=== PATIENT | female | born 1940 | race Caucasian/White ===

== ENCOUNTER → 2017-04-07 | Outpatient (CLI) | payer MEDICARE, OTHER ==
[~2017-04-07] MED LIST: ALBU8HFA IH; AMIO200T44 PO; AMLO-512 PO; ASPI-556 PO; ATOR40TA28 PO; BENA20 PO; BIOT1CAP3 PO; CLON.1 PO; ESOM20CA31 PO; MULT-1203 PO; OMEG100019 PO; PHOSLOC PO; REGADENOSON 0.4 MG/5 ML PF SYRINGE IVP ONE; SENN-106 PO; SESTAMIBI TC99M/UD ISOTOPE 1 EA INJ INJ ONE; VENL-67 PO
[2017-04-07 09:15] VITALS: BP 143/73
[2017-04-07 10:43] VITALS: BP 146/62
== END | disposition home or self-care (01) ==
LOC: CARDMN 08:09
PROVIDERS: ATTEND Internal Medicine Cardiovascular Disease
DX: I25.9 Chronic ischemic heart disease, unspecified (principal); I07.1 Rheumatic tricuspid insufficiency; I35.8 Other nonrheumatic aortic valve disorders; I50.1 Left ventricular failure, unspecified
CPT/HCPCS: 78452; 93017; 93306; A9500; J2785

== ENCOUNTER 2019-06-09 09:09 | Emergency (ER) | payer MEDICARE, OTHER ==
[~2019-06-09] VITALS: Ht 167.6 cm; Wt 91.8 kg
[~2019-06-09 09:09] MED LIST changes: -AMLO-512 PO; +AMLO10TA7 PO; +CLON-570 PO; -CLON.1 PO; +OMEG-135 PO; -OMEG100019 PO; -REGADENOSON 0.4 MG/5 ML PF SYRINGE IVP ONE; -SESTAMIBI TC99M/UD ISOTOPE 1 EA INJ INJ ONE
[2019-06-09] MEDS ORDERED: ATOR10TA84 PO (09:22)
[2019-06-09] MEDS ORDERED: HYDR-4069 PO (09:22)
[2019-06-09] MEDS ORDERED: KETOROLAC TROMETHAMINE 30 MG/ML VIAL IVP ONE (09:30)
[2019-06-09] MEDS ORDERED: MORPHINE SULFATE 4 MG/ML SYRINGE IVP ONE (09:30)
[2019-06-09] MEDS ORDERED: LIDOCAINE 5% TRANSDERMAL PATCH TD ONE (09:30)
[2019-06-09] MEDS ORDERED: CYCLOBENZAPRINE HCL 10 MG TABLET PO ONE (09:30)
[2019-06-09 10:19] VITALS: BP 141/81
== END 2019-06-09 10:27 | disposition home or self-care (01) ==
LOC: EMS 09:11
DX: M54.5 Low back pain (principal); G89.29 Other chronic pain; I48.91 Unspecified atrial fibrillation; I11.0 Hypertensive heart disease with heart failure; I50.9 Heart failure, unspecified; J44.9 Chronic obstructive pulmonary disease, unspecified; K21.9 Gastro-esophageal reflux disease without esophagitis; E78.00 Pure hypercholesterolemia, unspecified; F17.210 Nicotine dependence, cigarettes, uncomplicated; Z88.6 Allergy status to analgesic agent; Z79.82 Long term (current) use of aspirin
CPT/HCPCS: 96374; 96375; 99283; J1885; J2270

== ENCOUNTER → 2019-10-18 | Outpatient (CLI) | payer MEDICARE, OTHER ==
[~2019-10-18] VITALS: Ht 167.6 cm; Wt 90.0 kg
[~2019-10-18] MED LIST changes: +A20IH1 NEB; +ACET-66 PO; +ACET1030H NEB; -AMIO200T44 PO; +AMIO200T67 PO; +ATOR10TA84 PO; -ATOR40TA28 PO; -BENA20 PO; +BENA20TA11 PO; +BENZ200C53 PO; -BIOT1CAP3 PO; -CLON-570 PO; +CLON0.1T83 PO; +CLOP75TA3 PO; +DOCU-275 PO; -ESOM20CA31 PO; +GUAIF10 PO; +HYDR-4069 PO; +IPRNEB IH; +LEVO-72 PO; +MOM30 PO; -MULT-1203 PO; +MULT-248 PO; +NAPR-1193 PO; -OMEG-135 PO; +ONDA-104 PO; +PANT40TA25 PO; +PERCT PO; -PHOSLOC PO; +PRED5 PO
[2019-10-18 09:14] VITALS: BP 128/58
== END | disposition home or self-care (01) ==
LOC: SRCNTR 09:07
PROVIDERS: ATTEND Internal Medicine Critical Care Medicine
DX: J44.1 Chronic obstructive pulmonary disease with (acute) exacerbation (principal); F17.200 Nicotine dependence, unspecified, uncomplicated; F32.9 Major depressive disorder, single episode, unspecified; I10 Essential (primary) hypertension; E66.01 Morbid (severe) obesity due to excess calories; E78.5 Hyperlipidemia, unspecified; Z79.82 Long term (current) use of aspirin; Z79.899 Other long term (current) drug therapy; Z79.891 Long term (current) use of opiate analgesic; Z98.890 Other specified postprocedural states
CPT/HCPCS: G0463

== ENCOUNTER → 2019-10-30 | Outpatient (CLI) | payer MEDICARE, OTHER ==
[~2019-10-30] MED LIST changes: -A20IH1 NEB; -ACET-66 PO; -ACET1030H NEB; +AMIO200T44 PO; -AMIO200T67 PO; -BENZ200C53 PO; +CLON0.1T2 PO; -CLON0.1T83 PO; -CLOP75TA3 PO; -DOCU-275 PO; -GUAIF10 PO; -IPRNEB IH; -LEVO-72 PO; -MOM30 PO; -MULT-248 PO; -NAPR-1193 PO; -ONDA-104 PO; -PANT40TA25 PO; -PERCT PO; -PRED5 PO
== END | disposition home or self-care (01) ==
LOC: RADPV 10:59
PROVIDERS: ATTEND Internal Medicine Geriatric Medicine
DX: M51.36 Other intervertebral disc degeneration, lumbar region (principal); M47.816 Spondylosis without myelopathy or radiculopathy, lumbar region; M47.814 Spondylosis without myelopathy or radiculopathy, thoracic region; M85.88 Other specified disorders of bone density and structure, other site; M41.84 Other forms of scoliosis, thoracic region; I70.0 Atherosclerosis of aorta
CPT/HCPCS: 72070; 72100

== ENCOUNTER → 2019-12-07 | Outpatient (CLI) | payer MEDICARE, OTHER ==
[~2019-12-07] VITALS: Ht 162.6 cm; Wt 89.0 kg
[~2019-12-07] MED LIST changes: +A20IH1 NEB; +ACET-66 PO; +ACET1030H NEB; -AMIO200T44 PO; +AMIO200T67 PO; +BENZ200C53 PO; -CLON0.1T2 PO; +CLON0.1T83 PO; +CLOP75TA3 PO; +DOCU-275 PO; +GUAIF10 PO; +IPRNEB IH; +LEVO-72 PO; +MOM30 PO; +MULT-248 PO; +NAPR-1193 PO; +ONDA-104 PO; +PANT40TA25 PO; +PERCT PO; +PRED5 PO
[2019-12-07 09:41] VITALS: BP 140/63
== END | disposition home or self-care (01) ==
LOC: SRCNTR 09:40
PROVIDERS: ATTEND Internal Medicine Critical Care Medicine
DX: M85.80 Other specified disorders of bone density and structure, unspecified site (principal); M47.814 Spondylosis without myelopathy or radiculopathy, thoracic region; J44.9 Chronic obstructive pulmonary disease, unspecified; E66.01 Morbid (severe) obesity due to excess calories; E78.5 Hyperlipidemia, unspecified; I10 Essential (primary) hypertension
CPT/HCPCS: G0463

== ENCOUNTER 2019-12-09 18:32 | Inpatient (IN) | payer MEDICARE, OTHER ==
[~2019-12-09] VITALS: Ht 167.6 cm; Wt 96.2 kg
[~2019-12-09 18:32] MED LIST changes: -A20IH1 NEB; -ACET-66 PO; -ACET1030H NEB; -BENZ200C53 PO; -DOCU-275 PO; -GUAIF10 PO; -IPRNEB IH; -LEVO-72 PO; -MOM30 PO; -MULT-248 PO; -NAPR-1193 PO; -ONDA-104 PO; -PANT40TA25 PO; -PERCT PO; -PRED5 PO
[2019-12-09] MEDS ORDERED: AZITHROMYCIN 250 MG TABLET PO ONE (19:00)
[2019-12-09] MEDS ORDERED: IPRATROPIUM BROMIDE 0.5 MG/2.5 ML NEB SOLUTION NEB ONE (19:00)
[2019-12-09] MEDS ORDERED: CefTRIAXone 1 GM/DEXTROSE 50 ML IV ONE (19:00)
[2019-12-09] MEDS ORDERED: SODIUM CHLORIDE 0.9% 500 ML IV ONE (19:00)
[2019-12-09] MEDS ORDERED: PredniSONE 20 MG TABLET PO ONE (19:00)
[2019-12-09] MEDS ORDERED: 0.9% SODIUM CHLORIDE 10 ML SYRINGE IVP PRN (19:00)
[2019-12-09] MEDS ORDERED: ALBUTEROL SULFATE 2.5 MG/0.5 ML NEB SOLUTION NEB ONE (19:00)
[2019-12-09 19:56] LABS: BASOPHILS % (AUTO) 0.2 % (0.0-2.0); EOSINOPHILS % (AUTO) 0 % (1.0-6.0); LYMPHOCYTES % (AUTO) 14.3 % (22.0-44.0); MEAN CORPUSCULAR HGB CONC 33.4 G/dL (31.0-37.0); MEAN CORPUSCULAR VOLUME 90 fL (80-100); MONOCYTES # (AUTO) 1.1 K/uL (0.1-1.0); NEUTROPHILS # (AUTO) 10.8 K/uL (1.8-7.7); NEUTROPHILS % (AUTO) 77.5 % (40.0-70.0); PLATELET COUNT (AUTO) 208 K/uL (150-450); RED BLOOD CELL COUNT(AUTO) 4.01 MIL/uL (4.00-5.20); RED CELL DISTRIBUTION WIDTH 14.1 % (11.5-14.5)
[2019-12-09 20:04] LABS: PROTHROMBIN TIME 10.5 SEC (9.4-11.6)
[2019-12-09 20:05] LABS: CALCIUM, TOTAL 9.5 mg/dL (8.8-10.5); CREATININE 1.02 mg/dL (0.60-1.30); POTASSIUM 3.4 mmol/L (3.5-5.1)
[2019-12-09 20:10] LABS: ALBUMIN 3.1 g/dL (3.4-5.0); BILIRUBIN,TOTAL 0.4 mg/dL (0.1-1.0); TOTAL PROTEIN, SERUM 7.4 g/dL (6.4-8.2)
[2019-12-09 20:23] LABS: LACTIC ACID 1.2 mmol/L (0.4-2.0)
[2019-12-09] MEDS ORDERED: ACETAMINOPHEN 325 MG TABLET PO PRN (20:45)
[2019-12-09] MEDS ORDERED: HYDROCODONE/ACETAMINOPHEN 5-325 MG TABLET PO ONE (21:30)
[2019-12-09 23:12] VITALS: BP 158/60
[2019-12-09 23:19] LABS: INFLUENZA TYPE A NEGATIVE FOR TYPE A (NEGATIVE); INFLUENZA TYPE B NEGATIVE FOR TYPE B (NEGATIVE)
[2019-12-10] MEDS ORDERED: ACETAMINOPHEN 325 MG TABLET PO PRN
[2019-12-10] MEDS ORDERED: MAGNESIUM HYDROXIDE SUSPENSION 30 ML UDCUP PO PRN
[2019-12-10] MEDS ORDERED: ONDANSETRON HCL 4 MG/2 ML VIAL IVP PRN
[2019-12-10] MEDS ORDERED: 0.9% SODIUM CHLORIDE 10 ML SYRINGE IVP PRN
[2019-12-10] MEDS ORDERED: POTASSIUM CHL 10 MEQ/WATER 50 ML IV PRN (00:15)
[2019-12-10] MEDS ORDERED: SODIUM CHLORIDE 0.9% 1,000 ML IV SCH (00:15)
[2019-12-10] MEDS ORDERED: POTASSIUM CHLORIDE 20 MEQ ER TABLET PO PRN (00:15)
[2019-12-10] MEDS ORDERED: ALBUTEROL SULFATE 2.5 MG/0.5 ML NEB SOLUTION NEB PRN (00:15)
[2019-12-10] MEDS: MethylPREDNISolone SOD SUCC 125 MG/2 ML VIAL IVP SCH ×3 (00:58→15:28)
[2019-12-10 01:24] LABS: APPEARANCE,URINE CLEAR (CLEAR); BILIRUBIN,URINE NEGATIVE (NEGATIVE); GLUCOSE, URINE (UA) NEGATIVE (NEGATIVE); KETONES,URINE NEGATIVE (NEGATIVE); LEUKOCYTE ESTERASE ,URINE NEGATIVE (NEGATIVE); NITRATE,URINE POSITIVE (NEGATIVE); OCCULT BLOOD,URINE SMALL (NEGATIVE); PROTEIN,URINE NEGATIVE (NEGATIVE); UROBILINOGEN,URINE 0.2 mg/dL (<=1.0)
[2019-12-10 01:31] LABS: BACTERIA,URINE Rare /HPF (None Seen); RBC,URINE 0-2 /HPF (0-2); SQUAMOUS EPITHELIAL CELL,UR Moderate /LPF (None Seen)
[2019-12-10] MEDS: IPRATROPIUM BROMIDE 0.5 MG/2.5 ML NEB SOLUTION NEB SCH ×4 (02:53→20:25)
[2019-12-10] MEDS: ALBUTEROL SULFATE 2.5 MG/0.5 ML NEB SOLUTION NEB SCH ×4 (02:53→20:25)
[2019-12-10 03:15] LABS: GLUCOMETER DEV NAME(LOC) 5N.2; GLUCOSE,POINT OF CARE 179 MG/DL (70-110)
[2019-12-10 04:20] VITALS: BP 131/59
[2019-12-10 07:13] VITALS: BP 124/70
[2019-12-10 07:37] LABS: BASOPHILS % (AUTO) 0.2 % (0.0-2.0); EOSINOPHILS % (AUTO) 0 % (1.0-6.0); HEMATOCRIT 38.5 % (36-46); HEMOGLOBIN 12.7 g/dL (12.0-16.0); LYMPHOCYTES # (AUTO) 0.7 K/uL (1.0-4.8); LYMPHOCYTES % (AUTO) 5.4 % (22.0-44.0); MEAN CORPUSCULAR HEMOGLOBIN 29.9 pg (26.0-34.0); MEAN CORPUSCULAR HGB CONC 33.1 G/dL (31.0-37.0); MEAN CORPUSCULAR VOLUME 90 fL (80-100); MONOCYTES # (AUTO) 0.1 K/uL (0.1-1.0); MONOCYTES % (AUTO) 1.2 % (2.0-9.0); NEUTROPHILS # (AUTO) 11.4 K/uL (1.8-7.7); PLATELET COUNT (AUTO) 202 K/uL (150-450); RED BLOOD CELL COUNT(AUTO) 4.26 MIL/uL (4.00-5.20); RED CELL DISTRIBUTION WIDTH 14.5 % (11.5-14.5)
[2019-12-10 07:46] LABS: NEUTROPHILS % (AUTO) 93.2 % (40.0-70.0)
[2019-12-10 07:51] LABS: ANION GAP 11 mmol/L (8-16); CALCIUM, TOTAL 9.4 mg/dL (8.8-10.5); CARBON DIOXIDE 25 mmol/L (22-29); CHLORIDE 105 mmol/L (98-107); CREATININE 0.77 mg/dL (0.60-1.30); GLOMERULAR FILTR. RATE CALC > 60 mL/min (>60); GLUCOSE,RANDOM 188 mg/dL (70-110); POTASSIUM 4.2 mmol/L (3.5-5.1); SODIUM SERUM 141 mmol/L (136-145); UREA NITROGEN, BLOOD 16 mg/dL (7-18)
[2019-12-10] MEDS: CLOPIDOGREL BISULFATE 75 MG TABLET PO SCH (08:46)
[2019-12-10] MEDS: DOCUSATE SODIUM 100 MG CAPSULE PO SCH ×2 (08:47→20:58)
[2019-12-10] MEDS: ASPIRIN 81 MG EC TABLET PO SCH ×2 (08:47→20:57)
[2019-12-10] MEDS: VENLAFAXINE HCL 75 MG ER CAPSULE PO SCH (08:47)
[2019-12-10] MEDS: AMIODARONE HCL 200 MG TABLET PO SCH (08:47)
[2019-12-10] MEDS: FAMOTIDINE 10 MG/ML 2 ML VIAL IVP SCH (08:47)
[2019-12-10] MEDS: BENAZEPRIL HCL 20 MG TABLET PO SCH (08:48)
[2019-12-10] MEDS: AmLODIPine BESYLATE 10 MG TABLET PO SCH (08:48)
[2019-12-10 11:13] VITALS: BP 116/41
[2019-12-10 15:36] VITALS: BP 124/66
[2019-12-10] MEDS ORDERED: FUROSEMIDE 40 MG/4 ML VIAL IVP ONE (15:45)
[2019-12-10] MEDS: GuaiFENesin/D-METHORPHAN [SUGAR-FREE] 200-20MG/10 ML SYRUP UDCUP PO PRN (18:29)
[2019-12-10 19:55] VITALS: BP 153/63
[2019-12-10] MEDS: CefTRIAXone 1 GM/DEXTROSE 50 ML IV SCH (20:25)
[2019-12-10] MEDS ORDERED: SODIUM CHLORIDE 0.9% 250 ML IV ONE (20:26)
[2019-12-10] MEDS: ATORVASTATIN CALCIUM 10 MG TABLET PO SCH (20:57)
[2019-12-10] MEDS: AZITHROMYCIN 500 MG/NS 250 ML IV SCH (20:59)
[2019-12-10] MEDS: OxyCODONE HCL/ACETAMINOPHEN 5-325 MG TABLET PO PRN (21:02)
[2019-12-11 00:12] VITALS: BP 136/63
[2019-12-11] MEDS: MethylPREDNISolone SOD SUCC 125 MG/2 ML VIAL IVP SCH ×4 (00:32→23:29)
[2019-12-11] MEDS: IPRATROPIUM BROMIDE 0.5 MG/2.5 ML NEB SOLUTION NEB SCH ×4 (02:20→19:48)
[2019-12-11] MEDS: ALBUTEROL SULFATE 2.5 MG/0.5 ML NEB SOLUTION NEB SCH ×4 (02:20→19:48)
[2019-12-11 04:00] VITALS: BP 143/83
[2019-12-11 05:55] LABS: BASOPHILS % (AUTO) 0.1 % (0.0-2.0); EOSINOPHILS % (AUTO) 0 % (1.0-6.0); HEMATOCRIT 35.1 % (36-46); HEMOGLOBIN 11.4 g/dL (12.0-16.0); LYMPHOCYTES # (AUTO) 0.8 K/uL (1.0-4.8); LYMPHOCYTES % (AUTO) 5.4 % (22.0-44.0); MEAN CORPUSCULAR HEMOGLOBIN 29.7 pg (26.0-34.0); MEAN CORPUSCULAR HGB CONC 32.6 G/dL (31.0-37.0); MEAN CORPUSCULAR VOLUME 91 fL (80-100); MONOCYTES # (AUTO) 0.4 K/uL (0.1-1.0); MONOCYTES % (AUTO) 2.5 % (2.0-9.0); NEUTROPHILS # (AUTO) 12.9 K/uL (1.8-7.7); PLATELET COUNT (AUTO) 197 K/uL (150-450); RED BLOOD CELL COUNT(AUTO) 3.85 MIL/uL (4.00-5.20); RED CELL DISTRIBUTION WIDTH 14.2 % (11.5-14.5)
[2019-12-11 06:03] LABS: CALCIUM, TOTAL 9.6 mg/dL (8.8-10.5); CREATININE 0.96 mg/dL (0.60-1.30); POTASSIUM 4.5 mmol/L (3.5-5.1)
[2019-12-11 07:37] VITALS: BP 146/92
[2019-12-11] MEDS: DOCUSATE SODIUM 100 MG CAPSULE PO SCH ×2 (08:21→20:40)
[2019-12-11] MEDS: FAMOTIDINE 10 MG/ML 2 ML VIAL IVP SCH (08:21)
[2019-12-11] MEDS: VENLAFAXINE HCL 75 MG ER CAPSULE PO SCH (08:21)
[2019-12-11] MEDS: BENAZEPRIL HCL 20 MG TABLET PO SCH (08:22)
[2019-12-11] MEDS: CLOPIDOGREL BISULFATE 75 MG TABLET PO SCH (08:22)
[2019-12-11] MEDS: AMIODARONE HCL 200 MG TABLET PO SCH (08:22)
[2019-12-11] MEDS: AmLODIPine BESYLATE 10 MG TABLET PO SCH (08:22)
[2019-12-11] MEDS: ASPIRIN 81 MG EC TABLET PO SCH ×2 (08:22→20:39)
[2019-12-11 11:09] VITALS: BP 138/78
[2019-12-11] MEDS: GuaiFENesin/D-METHORPHAN [SUGAR-FREE] 200-20MG/10 ML SYRUP UDCUP PO PRN ×2 (14:57→20:39)
[2019-12-11 15:07] VITALS: BP 137/54
[2019-12-11] MEDS ORDERED: HYDROCODONE/ACETAMINOPHEN 10-325 MG TABLET PO PRN (15:45)
[2019-12-11] MEDS ORDERED: SENNA/DOCUSATE SODIUM 8.6-50 MG TABLET PO PRN (15:45)
[2019-12-11 20:19] VITALS: BP 135/57
[2019-12-11] MEDS: CefTRIAXone 1 GM/DEXTROSE 50 ML IV SCH (20:38)
[2019-12-11] MEDS: OxyCODONE HCL/ACETAMINOPHEN 5-325 MG TABLET PO PRN (20:39)
[2019-12-11] MEDS: ATORVASTATIN CALCIUM 10 MG TABLET PO SCH (20:39)
[2019-12-11] MEDS: AZITHROMYCIN 500 MG/NS 250 ML IV SCH (21:18)
[2019-12-12 00:29] VITALS: BP 147/73
[2019-12-12] MEDS: IPRATROPIUM BROMIDE 0.5 MG/2.5 ML NEB SOLUTION NEB SCH ×4 (02:00→20:00)
[2019-12-12] MEDS: ALBUTEROL SULFATE 2.5 MG/0.5 ML NEB SOLUTION NEB SCH ×4 (02:00→20:00)
[2019-12-12 05:30] VITALS: BP 109/62
[2019-12-12 06:54] LABS: BASOPHILS % (AUTO) 0.1 % (0.0-2.0); EOSINOPHILS % (AUTO) 0 % (1.0-6.0); HEMATOCRIT 34.8 % (36-46); HEMOGLOBIN 11.4 g/dL (12.0-16.0); LYMPHOCYTES # (AUTO) 1.1 K/uL (1.0-4.8); LYMPHOCYTES % (AUTO) 7.9 % (22.0-44.0); MEAN CORPUSCULAR HEMOGLOBIN 29.9 pg (26.0-34.0); MEAN CORPUSCULAR HGB CONC 32.8 G/dL (31.0-37.0); MEAN CORPUSCULAR VOLUME 91 fL (80-100); MONOCYTES # (AUTO) 0.4 K/uL (0.1-1.0); MONOCYTES % (AUTO) 2.5 % (2.0-9.0); NEUTROPHILS # (AUTO) 12.9 K/uL (1.8-7.7); PLATELET COUNT (AUTO) 222 K/uL (150-450); RED BLOOD CELL COUNT(AUTO) 3.82 MIL/uL (4.00-5.20); RED CELL DISTRIBUTION WIDTH 14.4 % (11.5-14.5)
[2019-12-12 07:00] LABS: HEMOGLOBIN A1C 6.3 % (3.8-5.6)
[2019-12-12 07:07] LABS: NEUTROPHILS % (AUTO) 89.5 % (40.0-70.0)
[2019-12-12 07:16] LABS: ANION GAP 10 mmol/L (8-16); CALCIUM, TOTAL 9.4 mg/dL (8.8-10.5); CARBON DIOXIDE 25 mmol/L (22-29); CHLORIDE 103 mmol/L (98-107); CHOL/HDL RATIO 3.9 (3.9-5.7); CHOLESTEROL 167 mg/dL (131-200); CREATININE 0.83 mg/dL (0.60-1.30); FREE T4 (FREE THYROXINE) 1.47 ng/dL (0.76-1.46); GLUCOSE,RANDOM 170 mg/dL (70-110); HDL CHOLESTEROL 43 mg/dL (40-60); LDL CHOL (CALC.) 104 mg/dL (0-130); POTASSIUM 4.4 mmol/L (3.5-5.1); SODIUM SERUM 138 mmol/L (136-145); THYROID STIMULATING HORMONE 0.19 uIU/mL (0.36-3.74); TRIGLYCERIDES 100 mg/dL (15-150); UREA NITROGEN, BLOOD 24 mg/dL (7-18)
[2019-12-12 07:18] LABS: GLOMERULAR FILTR. RATE CALC > 60 mL/min (>60)
[2019-12-12 07:21] VITALS: BP 148/61
[2019-12-12] MEDS: FAMOTIDINE 10 MG/ML 2 ML VIAL IVP SCH (08:50)
[2019-12-12] MEDS: MethylPREDNISolone SOD SUCC 125 MG/2 ML VIAL IVP SCH ×2 (08:50→16:17)
[2019-12-12] MEDS: CLOPIDOGREL BISULFATE 75 MG TABLET PO SCH (08:51)
[2019-12-12] MEDS: ASPIRIN 81 MG EC TABLET PO SCH ×2 (08:51→20:38)
[2019-12-12] MEDS: MULTIVITAMINS WITH MINERALS, THERAPEUTIC TABLET PO SCH (08:51)
[2019-12-12] MEDS: AmLODIPine BESYLATE 10 MG TABLET PO SCH (08:51)
[2019-12-12] MEDS: DOCUSATE SODIUM 100 MG CAPSULE PO SCH ×2 (08:51→20:38)
[2019-12-12] MEDS: VENLAFAXINE HCL 75 MG ER CAPSULE PO SCH (08:52)
[2019-12-12] MEDS: AMIODARONE HCL 200 MG TABLET PO SCH (08:52)
[2019-12-12] MEDS: BENAZEPRIL HCL 20 MG TABLET PO SCH (08:52)
[2019-12-12 12:00] VITALS: BP 128/72
[2019-12-12] MEDS: GuaiFENesin/D-METHORPHAN [SUGAR-FREE] 200-20MG/10 ML SYRUP UDCUP PO PRN (13:53)
[2019-12-12 17:06] VITALS: BP 122/73
[2019-12-12] MEDS: CefTRIAXone 1 GM/DEXTROSE 50 ML IV SCH (19:51)
[2019-12-12 20:05] VITALS: BP 159/71
[2019-12-12] MEDS: BENZONATATE 100 MG CAPSULE PO SCH (20:38)
[2019-12-12] MEDS: ATORVASTATIN CALCIUM 10 MG TABLET PO SCH (20:39)
[2019-12-12] MEDS: AZITHROMYCIN 500 MG/NS 250 ML IV SCH (20:40)
[2019-12-12] MEDS: OxyCODONE HCL/ACETAMINOPHEN 5-325 MG TABLET PO PRN (21:15)
[2019-12-12] MEDS ORDERED: 0.9% SODIUM CHLORIDE 5 ML NEB SOLUTION NEB ONE (22:47)
[2019-12-13 00:12] VITALS: BP 135/60
[2019-12-13] MEDS: MethylPREDNISolone SOD SUCC 125 MG/2 ML VIAL IVP SCH ×4 (00:33→23:34)
[2019-12-13] MEDS: ALBUTEROL SULFATE 2.5 MG/0.5 ML NEB SOLUTION NEB SCH ×4 (02:25→19:54)
[2019-12-13] MEDS: IPRATROPIUM BROMIDE 0.5 MG/2.5 ML NEB SOLUTION NEB SCH ×4 (02:26→19:54)
[2019-12-13 04:33] VITALS: BP 144/77
[2019-12-13 05:48] LABS: BASOPHILS % (AUTO) 0.1 % (0.0-2.0); EOSINOPHILS % (AUTO) 0 % (1.0-6.0); HEMATOCRIT 35.6 % (36-46); HEMOGLOBIN 11.8 g/dL (12.0-16.0); LYMPHOCYTES # (AUTO) 1.4 K/uL (1.0-4.8); LYMPHOCYTES % (AUTO) 11.4 % (22.0-44.0); MEAN CORPUSCULAR HEMOGLOBIN 29.8 pg (26.0-34.0); MEAN CORPUSCULAR HGB CONC 33.2 G/dL (31.0-37.0); MEAN CORPUSCULAR VOLUME 90 fL (80-100); MONOCYTES # (AUTO) 0.6 K/uL (0.1-1.0); MONOCYTES % (AUTO) 4.7 % (2.0-9.0); NEUTROPHILS # (AUTO) 10.2 K/uL (1.8-7.7); NEUTROPHILS % (AUTO) 83.8 % (40.0-70.0); PLATELET COUNT (AUTO) 232 K/uL (150-450); RED BLOOD CELL COUNT(AUTO) 3.95 MIL/uL (4.00-5.20); RED CELL DISTRIBUTION WIDTH 14.4 % (11.5-14.5)
[2019-12-13 05:59] LABS: ANION GAP 8 mmol/L (8-16); CALCIUM, TOTAL 9.3 mg/dL (8.8-10.5); CARBON DIOXIDE 27 mmol/L (22-29); CHLORIDE 104 mmol/L (98-107); CREATININE 0.83 mg/dL (0.60-1.30); GLUCOSE,RANDOM 173 mg/dL (70-110); POTASSIUM 4.1 mmol/L (3.5-5.1); SODIUM SERUM 139 mmol/L (136-145); UREA NITROGEN, BLOOD 21 mg/dL (7-18)
[2019-12-13 06:06] LABS: GLOMERULAR FILTR. RATE CALC > 60 mL/min (>60)
[2019-12-13 07:23] VITALS: BP 146/68
[2019-12-13] MEDS: VENLAFAXINE HCL 75 MG ER CAPSULE PO SCH (08:35)
[2019-12-13] MEDS: CLOPIDOGREL BISULFATE 75 MG TABLET PO SCH (08:35)
[2019-12-13] MEDS: AmLODIPine BESYLATE 10 MG TABLET PO SCH (08:36)
[2019-12-13] MEDS: BENAZEPRIL HCL 20 MG TABLET PO SCH (08:36)
[2019-12-13] MEDS: DOCUSATE SODIUM 100 MG CAPSULE PO SCH ×2 (08:36→20:39)
[2019-12-13] MEDS: MULTIVITAMINS WITH MINERALS, THERAPEUTIC TABLET PO SCH (08:36)
[2019-12-13] MEDS: AMIODARONE HCL 200 MG TABLET PO SCH (08:36)
[2019-12-13] MEDS: BENZONATATE 100 MG CAPSULE PO SCH ×2 (08:36→20:39)
[2019-12-13] MEDS: ASPIRIN 81 MG EC TABLET PO SCH ×2 (08:36→20:39)
[2019-12-13] MEDS: FAMOTIDINE 10 MG/ML 2 ML VIAL IVP SCH (08:37)
[2019-12-13 11:00] VITALS: BP 137/77
[2019-12-13] MEDS: OxyCODONE HCL/ACETAMINOPHEN 5-325 MG TABLET PO PRN ×2 (16:00→20:40)
[2019-12-13] MEDS: GuaiFENesin/D-METHORPHAN [SUGAR-FREE] 200-20MG/10 ML SYRUP UDCUP PO PRN (16:06)
[2019-12-13 16:40] VITALS: BP 124/62
[2019-12-13] MEDS: CefTRIAXone 1 GM/DEXTROSE 50 ML IV SCH (20:03)
[2019-12-13] MEDS: ATORVASTATIN CALCIUM 10 MG TABLET PO SCH (20:39)
[2019-12-13] MEDS: AZITHROMYCIN 500 MG/NS 250 ML IV SCH (20:46)
[2019-12-13 21:52] VITALS: BP 130/42
[2019-12-14] VITALS (9 sets, daily range): BP systolic 131–168; BP diastolic 65–88
[2019-12-14] MEDS: ALBUTEROL SULFATE 2.5 MG/0.5 ML NEB SOLUTION NEB SCH ×4 (02:07→20:45)
[2019-12-14] MEDS: IPRATROPIUM BROMIDE 0.5 MG/2.5 ML NEB SOLUTION NEB SCH ×4 (02:07→20:45)
[2019-12-14] MEDS: MULTIVITAMINS WITH MINERALS, THERAPEUTIC TABLET PO SCH (08:16)
[2019-12-14] MEDS: DOCUSATE SODIUM 100 MG CAPSULE PO SCH ×2 (08:16→22:15)
[2019-12-14] MEDS: AMIODARONE HCL 200 MG TABLET PO SCH (08:16)
[2019-12-14] MEDS: BENZONATATE 100 MG CAPSULE PO SCH ×2 (08:16→22:16)
[2019-12-14] MEDS: AmLODIPine BESYLATE 10 MG TABLET PO SCH (08:16)
[2019-12-14] MEDS: ASPIRIN 81 MG EC TABLET PO SCH ×2 (08:17→22:16)
[2019-12-14] MEDS: CLOPIDOGREL BISULFATE 75 MG TABLET PO SCH (08:17)
[2019-12-14] MEDS: OxyCODONE HCL/ACETAMINOPHEN 5-325 MG TABLET PO PRN ×3 (08:17→22:17)
[2019-12-14] MEDS: MethylPREDNISolone SOD SUCC 125 MG/2 ML VIAL IVP SCH ×2 (08:18→15:43)
[2019-12-14] MEDS: VENLAFAXINE HCL 75 MG ER CAPSULE PO SCH (08:18)
[2019-12-14] MEDS: FAMOTIDINE 10 MG/ML 2 ML VIAL IVP SCH (08:18)
[2019-12-14] MEDS: BENAZEPRIL HCL 20 MG TABLET PO SCH (08:19)
[2019-12-14] MEDS ORDERED: NAPROXEN 375 MG TABLET PO PRN (12:45)
[2019-12-14] MEDS: ACETYLCYSTEINE 10% 100 MG/ML 4 ML NEB SOLUTION NEB SCH (14:54)
[2019-12-14] MEDS: CefTRIAXone 1 GM/DEXTROSE 50 ML IV SCH (22:14)
[2019-12-14] MEDS: AZITHROMYCIN 500 MG/NS 250 ML IV SCH (22:15)
[2019-12-14] MEDS: ATORVASTATIN CALCIUM 10 MG TABLET PO SCH (22:15)
[2019-12-15] VITALS (7 sets, daily range): BP systolic 142–179; BP diastolic 64–90
[2019-12-15] MEDS: ACETYLCYSTEINE 10% 100 MG/ML 4 ML NEB SOLUTION NEB SCH ×3 (00:19→14:59)
[2019-12-15] MEDS: MethylPREDNISolone SOD SUCC 125 MG/2 ML VIAL IVP SCH ×2 (01:01→08:03)
[2019-12-15] MEDS: IPRATROPIUM BROMIDE 0.5 MG/2.5 ML NEB SOLUTION NEB SCH ×4 (03:05→20:10)
[2019-12-15] MEDS: ALBUTEROL SULFATE 2.5 MG/0.5 ML NEB SOLUTION NEB SCH ×4 (03:05→20:11)
[2019-12-15] MEDS: BENZONATATE 100 MG CAPSULE PO SCH ×2 (08:04→20:00)
[2019-12-15] MEDS: MULTIVITAMINS WITH MINERALS, THERAPEUTIC TABLET PO SCH (08:04)
[2019-12-15] MEDS: DOCUSATE SODIUM 100 MG CAPSULE PO SCH ×2 (08:04→20:00)
[2019-12-15] MEDS: CLOPIDOGREL BISULFATE 75 MG TABLET PO SCH (08:04)
[2019-12-15] MEDS: AmLODIPine BESYLATE 10 MG TABLET PO SCH (08:04)
[2019-12-15] MEDS: ASPIRIN 81 MG EC TABLET PO SCH ×2 (08:04→20:01)
[2019-12-15] MEDS: AMIODARONE HCL 200 MG TABLET PO SCH (08:04)
[2019-12-15] MEDS: FAMOTIDINE 10 MG/ML 2 ML VIAL IVP SCH (08:05)
[2019-12-15] MEDS: VENLAFAXINE HCL 75 MG ER CAPSULE PO SCH (08:05)
[2019-12-15] MEDS: BENAZEPRIL HCL 20 MG TABLET PO SCH (08:06)
[2019-12-15] MEDS: MethylPREDNISolone SOD SUCC 40 MG/ML VIAL IVP SCH (17:00)
[2019-12-15] MEDS ORDERED: SODIUM CHLORIDE 0.9% 250 ML IV ONE (19:50)
[2019-12-15] MEDS: CefTRIAXone 1 GM/DEXTROSE 50 ML IV SCH (19:52)
[2019-12-15] MEDS: OxyCODONE HCL/ACETAMINOPHEN 5-325 MG TABLET PO PRN (19:53)
[2019-12-15] MEDS: ATORVASTATIN CALCIUM 10 MG TABLET PO SCH (20:00)
[2019-12-15] MEDS: AZITHROMYCIN 500 MG/NS 250 ML IV SCH (20:50)
[2019-12-16] MEDS: MethylPREDNISolone SOD SUCC 40 MG/ML VIAL IVP SCH ×2 (00:10→09:26)
[2019-12-16] MEDS: ACETYLCYSTEINE 10% 100 MG/ML 4 ML NEB SOLUTION NEB SCH ×2 (00:59→09:15)
[2019-12-16] MEDS: ALBUTEROL SULFATE 2.5 MG/0.5 ML NEB SOLUTION NEB SCH ×2 (01:01→09:15)
[2019-12-16] MEDS: IPRATROPIUM BROMIDE 0.5 MG/2.5 ML NEB SOLUTION NEB SCH ×2 (01:01→09:15)
[2019-12-16 04:59] VITALS: BP 140/85
[2019-12-16 07:38] VITALS: BP 136/62
[2019-12-16] MEDS: FAMOTIDINE 10 MG/ML 2 ML VIAL IVP SCH (09:27)
[2019-12-16] MEDS: DOCUSATE SODIUM 100 MG CAPSULE PO SCH (09:27)
[2019-12-16] MEDS: ASPIRIN 81 MG EC TABLET PO SCH (09:28)
[2019-12-16] MEDS: MULTIVITAMINS WITH MINERALS, THERAPEUTIC TABLET PO SCH (09:28)
[2019-12-16] MEDS: BENZONATATE 100 MG CAPSULE PO SCH (09:28)
[2019-12-16] MEDS: AMIODARONE HCL 200 MG TABLET PO SCH (09:28)
[2019-12-16] MEDS: CLOPIDOGREL BISULFATE 75 MG TABLET PO SCH (09:28)
[2019-12-16] MEDS: BENAZEPRIL HCL 20 MG TABLET PO SCH (09:29)
[2019-12-16] MEDS: AmLODIPine BESYLATE 10 MG TABLET PO SCH (09:29)
[2019-12-16] MEDS: VENLAFAXINE HCL 75 MG ER CAPSULE PO SCH (09:32)
[2019-12-16 11:26] VITALS: BP 139/72
[2019-12-16] MEDS ORDERED: ACET1030H NEB (13:27)
[2019-12-16] MEDS ORDERED: DOCU-275 PO (13:28)
[2019-12-16] MEDS ORDERED: BENZ200C53 PO (13:28)
[2019-12-16] MEDS ORDERED: MULT-248 PO (13:31)
[2019-12-16] MEDS ORDERED: PANT40TA25 PO (13:32)
[2019-12-16] MEDS ORDERED: PRED5 PO (13:32)
[2019-12-16] MEDS ORDERED: IPRNEB IH (13:37)
[2019-12-16] MEDS ORDERED: ACET-66 PO (13:38)
[2019-12-16] MEDS ORDERED: GUAIF10 PO (13:39)
[2019-12-16] MEDS ORDERED: A20IH1 NEB (13:39)
[2019-12-16] MEDS ORDERED: MOM30 PO (13:40)
[2019-12-16] MEDS ORDERED: ONDA-104 PO (13:41)
[2019-12-16] MEDS ORDERED: NAPR-1193 PO (13:41)
[2019-12-16] MEDS ORDERED: LEVO-72 PO (13:42)
[2019-12-16] MEDS ORDERED: PERCT PO (13:44)
[2019-12-16] MEDS: OxyCODONE HCL/ACETAMINOPHEN 5-325 MG TABLET PO PRN (14:16)
[2019-12-16 14:17] VITALS: BP 127/74
== END 2019-12-16 14:20 | DRG 871 ==
LOC: EMS 18:34 → 5S 20:50
PROVIDERS: ADMIT Internal Medicine; ATTEND Internal Medicine Geriatric Medicine
DX: A41.9 Sepsis, unspecified organism (principal); J18.0 Bronchopneumonia, unspecified organism; E87.1 Hypo-osmolality and hyponatremia; E44.0 Moderate protein-calorie malnutrition; J44.1 Chronic obstructive pulmonary disease with (acute) exacerbation; I48.91 Unspecified atrial fibrillation; E78.5 Hyperlipidemia, unspecified; D64.9 Anemia, unspecified; R79.89 Other specified abnormal findings of blood chemistry; I50.9 Heart failure, unspecified; K21.9 Gastro-esophageal reflux disease without esophagitis; M19.90 Unspecified osteoarthritis, unspecified site; E78.00 Pure hypercholesterolemia, unspecified; F32.9 Major depressive disorder, single episode, unspecified; F17.210 Nicotine dependence, cigarettes, uncomplicated; I11.0 Hypertensive heart disease with heart failure; E87.6 Hypokalemia; K59.00 Constipation, unspecified; E66.9 Obesity, unspecified; I25.10 Atherosclerotic heart disease of native coronary artery without angina pectoris; R73.03 Prediabetes; M54.9 Dorsalgia, unspecified; K44.9 Diaphragmatic hernia without obstruction or gangrene; Z96.642 Presence of left artificial hip joint; Z68.34 Body mass index [BMI] 34.0-34.9, adult; Z88.8 Allergy status to other drugs, medicaments and biological substances
CPT/HCPCS: 71250; 83036; 83605; 83735; 84439; 84443; 87040; 87804; 93005; 93306; 94640; 96365; 97162; 97166; 97530; 97535; J0456; J0696; J1940; J2920; J2930; J3490; J7040; J7050

== ENCOUNTER 2020-01-30 18:10 | Emergency (ER) | payer MEDICARE, OTHER ==
[~2020-01-30] VITALS: Ht 170.2 cm; Wt 95.0 kg
[~2020-01-30 18:10] MED LIST changes: +A20IH1 NEB; +ACET-66 PO; +ACET1030H NEB; +AMIO200T6 PO; -AMIO200T67 PO; +BENZ200C53 PO; -CLON0.1T83 PO; +DOCU-275 PO; +GUAIF10 PO; +IPRNEB IH; +LEVO-72 PO; +MOM30 PO; +MULT-248 PO; +NAPR-1193 PO; +ONDA-104 PO; +PANT40TA25 PO; +PERCT PO; +PRED5 PO
[2020-01-30] MEDS ORDERED: PERTUSS(ACELL),DIPH,TET VAC/PF 0.5 ML VIAL IM ONE (18:30)
[2020-01-30] MEDS ORDERED: ACETAMINOPHEN 325 MG TABLET PO ONE (18:45)
[2020-01-30] MEDS ORDERED: LIDOCAINE 1% 10 ML VIAL INJ ONE (21:00)
[2020-01-30 22:05] VITALS: BP 100/64
== END 2020-01-30 23:00 | disposition home or self-care (01) ==
LOC: EMS 18:13
DX: S62.630A Displaced fracture of distal phalanx of right index finger, initial encounter for closed fracture (principal); S62.632A Displaced fracture of distal phalanx of right middle finger, initial encounter for closed fracture; S61.210A Laceration without foreign body of right index finger without damage to nail, initial encounter; I11.0 Hypertensive heart disease with heart failure; I50.9 Heart failure, unspecified; J44.9 Chronic obstructive pulmonary disease, unspecified; F17.210 Nicotine dependence, cigarettes, uncomplicated; E78.00 Pure hypercholesterolemia, unspecified; I48.91 Unspecified atrial fibrillation; Z79.82 Long term (current) use of aspirin; Z79.899 Other long term (current) drug therapy; W10.8XXA Fall (on) (from) other stairs and steps, initial encounter; Y93.89 Activity, other specified; Y92.89 Other specified places as the place of occurrence of the external cause; Y99.8 Other external cause status
CPT/HCPCS: 12002; 29130; 70450; 73140; 90471; 90715; 96372; 99285; J0690; J3490